=== PATIENT | female | born 1980 | race Caucasian/White ===

== ENCOUNTER 2025-03-13 09:14 | Emergency (ER) | payer SELFPAY ==
[~2025-03-13] VITALS: Ht 152.4 cm; Wt 37.8 kg
[2025-03-13 09:25] VITALS: TEMP 97.9
[2025-03-13 09:40] LABS: COVID AG,FIA SOURCE NASAL SWAB
[2025-03-13 09:49] LABS: PLATELET COUNT (AUTO) 302 K/uL (150-450); RED BLOOD CELL COUNT(AUTO) 5.15 MIL/uL (4.00-5.20); RED CELL DISTRIBUTION WIDTH 13.9 % (11.5-14.5); WHITE BLOOD COUNT (AUTO) 7.3 K/uL (4.5-11.0)
[2025-03-13 10:42] LABS: CALCIUM, TOTAL 8.5 mg/dL (8.8-10.5); CREATININE 0.61 mg/dL (0.60-1.30); GLOMERULAR FILTR. RATE CALC > 60 mL/min (>60); GLUCOSE,RANDOM 93 mg/dL (70-110); SODIUM SERUM 140 mmol/L (136-145); UREA NITROGEN, BLOOD 8 mg/dL (7-18)
[2025-03-13 10:45] LABS: TROPONIN I-HIGH SENSITIVITY 87 ng/L (<51)
[2025-03-13 10:45] LABS: INFLUENZA TYPE A NEGATIVE FOR TYPE A (NEGATIVE); INFLUENZA TYPE B NEGATIVE FOR TYPE B (NEGATIVE); SARS-COV2 (COVID) ANTIGEN,FIA Negative (Negative)
[2025-03-13] MEDS: IPRATROPIUM BROMIDE 0.5 MG/2.5 ML NEB SOLUTION NEB ONE (11:04)
[2025-03-13] MEDS: ALBUTEROL SULFATE 2.5 MG/0.5 ML NEB SOLUTION NEB ONE (11:04)
[2025-03-13 11:10] VITALS: PULSE 75; RESP 22; O2SAT 95
[2025-03-13 11:25] VITALS: PULSE 68; RESP 18; O2SAT 100
[2025-03-13 12:32] VITALS: BP 138/82; PULSE 67; RESP 18; O2SAT 96
[2025-03-13] MEDS: ALBUTEROL SULFATE HFA 90 MCG/PUFF 8 GM INHALER IH ONE (13:56)
[2025-03-13] MEDS ORDERED: PRED-554 PO (13:57)
[2025-03-13] MEDS ORDERED: ALBUTEROL SULFATE HFA 90 MCG/PUFF 8 GM INHALER IH ONE (14:00)
[2025-03-13 14:11] LABS: TROPONIN I-HIGH SENSITIVITY 80 ng/L (<51)
== END 2025-03-13 14:00 | disposition left against medical advice (07) ==
LOC: EMS 09:22
DX: J45.901 Unspecified asthma with (acute) exacerbation (principal); R06.02 Shortness of breath; F17.210 Nicotine dependence, cigarettes, uncomplicated; Z20.822 Contact with and (suspected) exposure to COVID-19
CPT/HCPCS: 99285; 71045; 87426; 80048; 83880; 84484; 85025; 87804; 36415; 94640; 93005; J7512; J7613